=== PATIENT | male | born 1950 | race Caucasian/White ===

== ENCOUNTER 2022-01-25 11:19 | Outpatient (CLI) | payer MEDICARE, BC, SELFPAY ==
[2022-01-25 12:25] LABS: Albumin* 4.1 g/dL (3.3-5.0); Chloride* 105 mmol/L (96-114); Sodium* 138 mmol/L (135-149)
[2022-01-25 12:26] LABS: Potassium* 3.9 mmol/L (3.6-5.1)
[2022-01-25 12:27] LABS: Cholesterol* 143 mg/dL (90-199)
[2022-01-25 12:28] LABS: Alkaline Phosphatase* 76 U/L (40-150); Aspartate Amino Transferase* 30 U/L (12-35); Bilirubin Total* 0.9 mg/dL (0.1-1.5); Blood Urea Nitrogen* 25 mg/dL (7-30); Carbon Dioxide* 26 mmol/L (20-32); Estimated Glomerular Filt Rate 80 ml/min; Glucose* 94 mg/dL (60-115); Total Protein* 6.7 g/dL (6.0-8.3)
[2022-01-25 12:29] LABS: Alanine Aminotransferase* 30 U/L (4-50); HDL Cholesterol* 65 mg/dL (>=40); LDL Cholesterol Calculated 66 mg/dL (<100); Triglycerides* 59 mg/dL (40-149)
[2022-01-26 12:53] LABS: PSA Screen* 1.05 ng/mL (0.10-4.00)
== END 2022-01-25 11:20 | disposition home or self-care (01) ==
PROVIDERS: PCP Family Medicine; Visit Provider Family Medicine
DX: Z00.00 Encounter for general adult medical examination without abnormal findings (principal); E78.5 Hyperlipidemia, unspecified; I10 Essential (primary) hypertension; Z12.5 Encounter for screening for malignant neoplasm of prostate
CPT/HCPCS: 80053; 80061; 84153

== ENCOUNTER 2023-01-25 07:21 | Outpatient (CLI) | payer MEDICARE, BC, SELFPAY | END 2023-01-25 07:22 | disposition home or self-care (01) | LOC: NFLDREF 01-27 10:54 | PROVIDERS: PCP Family Medicine; Referring Provider Family Medicine; Visit Provider Family Medicine | DX: Z00.00 Encounter for general adult medical examination without abnormal findings (principal); E78.5 Hyperlipidemia, unspecified; R39.12 Poor urinary stream; I10 Essential (primary) hypertension; E66.9 Obesity, unspecified; G25.81 Restless legs syndrome; E87.6 Hypokalemia; Z12.5 Encounter for screening for malignant neoplasm of prostate | CPT/HCPCS: 80053; 80061; 84153 ==

== ENCOUNTER 2023-09-30 07:55 | Outpatient (CLI) | payer MEDICARE, BC, SELFPAY ==
--- OUTSIDE RECORDS SUMMARY | 2023-10-03 03:05 | XMS_ITS | Clinical Summary ---
Author Name Unknown Organization [facility] Address [place], [place] [address] Care Team Providers Care Laborer Carpentry Dock Name Role Phone Zeinab Quinones AuD Unavailable [phone] Ritchie Vitale MD Primary Care Provider [phone] Allergies Active Allergy Reactions Criticality Noted Date Comments Homeopathic Products 02/16/2007 nasal congestion Gabapentin Dizziness 11/30/2013 He also had a hard time with articulation Horse/Equine Containing Products *Unknown 10/05/2006 Mold Extracts 02/16/2007 nasal congestion and laryngitis Pollen Extracts 02/16/2007 nasal congestion Medications Medication Sig Dispensed Refills Start Date End Date Status cetirizine (ZYRTEC) 10 mg tablet Take 1 tablet by mouth once daily. 0 11/05/2013 Active lisinopril-hydrochl orothiazide, 20-25 mg, (PRINZIDE, ZESTORETIC) 20-25 mg per tablet Take 1 tablet by mouth once daily. Takes 1/2 tablet daily 0 07/14/2015 Active atorvastatin (LIPITOR) 10 mg tablet 2 02/10/2016 Active ipratropium (ATROVENT NASAL) 42 mcg (0.06 %) nasal sprayIndications:Ac [place] non-recurrent maxillary sinusitis Inhale 2 Sprays into both nostrils 3 times daily. 15 mL 11/28/2017 Active fluticasone (50 mcg per actuation) nasal solution (FLONASE) insert 1 spray into each nostril twice daily 04/19/2021 Active multivitamin capsule Take 1 Capsule by mouth once daily. 0 05/12/2021 Active CPAPIndications:CYNDI (obstructive sleep apnea) CPAP machine for home use at pressure 14.6 cmw, full face mask x1/3month with a full face cushion x1/mo 1 Each 11 2023 Active pregabalin (Lyrica) 75 mg capsuleIndications: Restless legs syndrome (RLS) Take 1 pill (75mg) orally 1 hour before bed and 2 pills (150mg) orally at bedtime 270 Capsule 3 2023 Active pramipexole (Mirapex) 0.5 mg tabletIndications:R estless legs syndrome (RLS) Take one pill an hour before bed and another at bedtime, a third dose can be used if having trouble 270 Tablet 3 2023 Active zw-gt-yw2-dha-epa-f joe-lut-mikayla (Ocuvite Adult 50 Plus) 250 mg (90 mg-160 mg) cap Take by mouth. 07/04/2023 Active temazepam (RESTORIL) 30 mg capsuleIndications: Chronic insomnia Take 1 Capsule (30 mg) by mouth at bedtime if needed for Sleep. 60 Capsule 07/04/2023 Active Active Problems Problem Noted Date Diagnosed Date CYNDI 03/03/2021 AHI-17 03/16/2021 Sensorineural hearing loss, bilateral 05/15/2010 Subjective tinnitus 01/02/2010 Family history of malignant neoplasm of prostate 01/09/2007 Unspecified essential hypertension 10/05/2006 Allergic rhinitis, cause unspecified 10/05/2006 Restless legs syndrome (RLS) 10/05/2006 Resolved Problems Problem Noted Date Diagnosed Date Resolved Date SNHL (sensorineural hearing loss) 01/02/2010 05/15/2010 Encounters Date Type Department Care Team Description 10/02/2023 Travel 07/04/2023 11:30 AM FORENSIC PATHOLOGIST Office Visit [facility] [address] [place], [place] [id number] Rohit Bar MD Sleep Follow-up (cpap) 07/04/2023 Travel from Last 3 Months Immunizations Name Administration Dates Next Due Influenza, High-dose Inactivated 03/12/2014 Influenza, IIV3 (Age >=3 years) 04/14/2006 Pneumococcal Poly,23-Valent (Pneumovax) 03/12/20 14 Tdap 01/09/2012,12/13/2005 Zoster (Zostavax-ZVL, live) 01/14/2012 Family History Medical History Relation Name Comments Cancer-prostate Father Heart Disease Father heart attack 2 004 Other Father Lynne's Lung Other Maternal Grandmother at age 90 developed dementia Hypertension Mother Other Mother Alzheimer Other Paternal Grandmother at age 90 developed dementia Other Sister 2 endometriosis Relation Name Status Comments Daughter Alive Father Alive Maternal Grandmother Mother Alive Paternal Grandmother Sister 1 Alive Sister 2 Son 1 Alive Son 2 Alive Social History Tobacco Use Types Packs/Day Years Used Date Smoking Tobacco: Former Pipe Q uit: 03/27/1988 Smokeless Tobacco: Never Tobacco Cessation:Counseling Given: Yes Alcohol Use Standard Drinks/Week Comments Yes 0 (1 standard drink = 0.6 oz pur e alcohol) 2 glasses wine/week with meals Social Connections Answer Date Recorded Frequency of Communication with Friends and Fami ly Not on file 06/27/2021 Financial Resource Strain Answer Date R ecorded Difficulty of Paying Living Expenses Not on file 06/27/2021 Difficulty of Paying Living Expenses Not on file 06/27/2021 Sex and Gender Information Value Date Recorded Sex Assigned at Not on file Gender Identity Not on file Sexual Orientation Not on file Obstetrics History Last Filed Vital Signs Vital Sign Reading Time Taken Comments Blood Pressure 125/74 07/04/2023 11:30 AM FORENSIC PATHOLOGIST Pulse 96 07/04/2023 11:30 AM FORENSIC PATHOLOGIST Temperature 36.8 ??C (98.3 ??F) 11/28/2017 9:33 AM CD T Respiratory Rate 24 03/16/2010 3:35 PM CDT Oxygen Saturation 96% 07/04/2023 11:30 AM FORENSIC PATHOLOGIST Inhaled Oxygen Concentration - - Weight 86.4 kg (190 lb 6.4 oz) 2023 9:35 A M CDT Height 172.5 cm (5' 7.91) 02/25/2021 9:36 AM CD T Body Mass Index 29.02 02/25/2021 9:36 AM CDT Plan of Treatment Upcoming Encounters Date Type Department Care Team (Late st Contact Info) Description 10/03/2023 8:15 AM CDT Office Visit [facility] [place] [address] [place] [address] Ledy Khan PA [address] [place] [address] Health Maintenance Due Date Last Done Comments Hepatitis C screening for ag e 18-79 1967 Lipids for age 45-75 12/17/2010 12/17/2005 Zoster (shingles) series for age 50+ (2 of 3) 03/10/2012 01/14/2012 Medicare Wellness for age 65+ 2014 Pneumococcal series for age 65+ (2 of 2 - PCV) 03/12/2015 03/12/2014 Colonoscopy through age 75 12/31/2017 01/01/2008 Depression screening for age 12+ 02/22/2018 02/23/20 17 Tetanus booster 01/08/2022 01/09/2012, 12/13/2005 BMI (ht and wt on same day) for age 18+ 02/25/2022 02/25/2021, 02/22/2017, 02/26/2016, Additional history exists Influenza for age 65+ 02/26/2024 03/12/2014, 006 Tdap Completed 01/09/2012, 12/13/2005 COVID-19 vaccine series Completed 03/30/20, 03/15/2022, 11/17/2021, Additional history exists Procedures Procedure Name Priority Date/Time Associated Diagnosis Comments LIPID PANEL Timed 12/17/2005 7:12 AM CDT from Last 3 Months or Most Recently Relevant to Health Maintenance Results * (ABNORMAL) LIPID PANEL (12/17/2005 7:12 AM CDT) CHOLESTEROL,TOTAL 206(H) 110 - 199 mg/dL [facility] TRIGLYCERIDES 105 <150 mg/dL [facility] HDL CHOLESTEROL 47 >40 mg/dL [facility] CHOL/HDL RATIO 4.38 <4.51 [facility] LDL CHOLESTEROL 138(H) <131 mg/dL [facility] PATIENT STATUS Fasting [facility] 12/17/2005 7:12 AM CDT 12/17/2005 7:12 AM CDT Devang Dumont MD CHEMISTRY [facility] [address] [place] [address] from Last 3 Months or Most Recently Relevant to Health Maintenance Care Teams Laborer Carpentry Dock Relationship Specialty Start Date End Date Ritchie Vitale MD PCP - General Family Practice 01/24/14 Zeinab Quinones AuD Audiology 10/26/11
--- OUTSIDE RECORDS SUMMARY | 2023-10-03 03:05 | XMS_ITS | Continuity of Care Document ---
Author Name Unknown Organization [facility] Address [address] [address] [place] [address] Phone Care Team Providers Care Facilities Maintenance Worker Name Role Phone Vicente Goodwin MD Unavailable Unavailable Medications Medication Instructions Dosage Effective Dates (start - stop) Status Comments PSEUDOVENT 250-120MGCPMP 12HR Use as directed - Active Nasonex 50 mcg/Actuation [place] as needed - Active lisinopril 5 mg Tab Take 1 tablet by gio th daily - Active Mirapex 1 mg Tab Take one tablet by mouth daily - Active Procedures Procedure Date Offic/outpt E&m [facility] [facility] 8 Routine Serum Collection [id number] Advance Directives Directive Yes / No Effective Date File Name No Information Encounters Encounter Description Practice Location Reason(s) For Visit Diagnoses Date Provider Providers Copied on Encounter [facility], [address] [address], [place], [place], [id number], [place] tel:[phone] [facility] No Information Buddy Zhang. [address] [place] [address], [id number], [place]. tel:[phone] Offic/outpt [facility] [facility], [address] [address], [place], [place], [id number], [place] tel:[phone] [facility] Abdominal pain (chief complaint)G as (chief complaint) Change In Bowel Habits Buddy Zhang. [address] [place] [address], [id number], [place]. tel:[phone] Referring Provider: Referral Self, USE FOR SELF REFERRALS. Family History Family Member Type Diagnosis Age At Onset First degree family history Problem (finding) No Family history of No history of Colon Polyps First degree family history Problem (finding) prostate cancer First degree family history Problem (finding) No history of Crohn's First degree family history Problem (finding) No history of Ulcerative Colitis First degree family history Problem (finding) No history of Cancer, colon Payers Payer name Insurance type Covered democrat ID Authoriza tion(s) [facility] [id number] Social History Type Description Quantity Date Captured Comments Sex Male Smoking Status No Information Chief Complaint And Reason For Visit No Information Reason For Referral Reason For Referral No Information History Of Present Illness Encounter Date Complaint History Of Prese nt Illness No Information Functional Status Date Functional Assessmen t No Information Instructions Date Instruction Additional Infor mation No Information Assessments Type Assessment Date No Information Patient Care Teams Name Effective Dates (start - stop) Status Members No Information
== END 2023-09-30 07:56 | disposition home or self-care (01) ==
LOC: NFLDREF 10-03 03:04
PROVIDERS: PCP Family Medicine; Referring Provider Family Medicine; Visit Provider Family Medicine
DX: Z01.818 Encounter for other preprocedural examination (principal)
CPT/HCPCS: 80048

== ENCOUNTER 2023-12-22 08:15 | Outpatient (RCR) | payer MEDICARE, BC, SELFPAY | END 2023-12-27 09:46 | disposition home or self-care (01) | PROVIDERS: PCP Family Medicine; Visit Provider Orthopaedic Surgery | DX: Z96.652 Presence of left artificial knee joint (principal); Z51.89 Encounter for other specified aftercare | CPT/HCPCS: 97110; 97112; 97140; 97161; 97530 ==

== ENCOUNTER 2024-01-31 07:35 | Outpatient (CLI) | payer MEDICARE, BC, SELFPAY ==
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
--- OUTSIDE RECORDS SUMMARY | 2024-02-01 11:34 | XMS_ITS | Clinical Summary ---
Author Organization [facility] Address [place], [place] [address] Care Team Providers Care Hide Cleaner Name Role Phone Zeinab Quinones AuD Unavailable [phone] Ritchie Vitale MD Primary Care Provider [phone] Allergies Active Allergy Reactions Criticality Noted Date [...] NASAL) 42 mcg (0.06 %) nasal sprayIndications:Ac [place] non-recurrent maxillary sinusitis Inhale 2 Sprays into [...] having trouble 270 Tablet 3 2023 Active lt-sg-to4-dha-epa-f joe-lut-mikayla (Ocuvite Adult 50 Plus) 250 mg (90 mg-160 mg) cap Take by mouth. 07/04/2023 Active loratadine (CLARITIN) 10 mg liqui-gel capsule Take 10 mg by mouth once daily. 06/27/2019 Active temazepam (RESTORIL) 30 mg capsuleIndications: Chronic insomnia Take 1 Capsule (30 mg) by mouth at bedtime if needed for Sleep. 60 Capsule 12/15/2023 Active temazepam (RESTORIL) 30 mg capsuleIndications: Chronic insomnia Take 1 Capsule (30 mg) by mouth at bedtime if needed for Sleep. 60 Capsule 12/14/2023 Active Active Problems Problem Noted Date Diagnosed [...] Encounters Date Type Department Care Team Description 12/13/2023 Refill [facility] [address] [place] [address] Rohit Bar MD Refill Request (Temazepam 30mg) from Last 3 Months Immunizations Name Administration [...] of Communication with Friends and Fami ly 0 10/03/2023 Alcohol Use Answer Date Recorded How often do you have a drink containing alcohol ? 2 10/03/2023 How many drinks containing a lcohol do you have on a typical day when you are drinking? 0 10/03/2023 How often do you have five or more drinks on one occasion? 0 10/03/2023 Financial Resource Strain Answer Date R ecorded Difficulty of Paying Living Expenses 3 10/03/2023 Difficulty of Paying Living Expenses Not on file 10/03/2023 Food Insecurity Answer Date Recorded Worried About Running Out of Food in the Last Ye ar 1 10/03/2023 Transportation Needs Answer Date Record ed Lack of Transportation (Medical) 1 10/03/2023 Housing Stability Answer Date Recorded Unable to Pay for Housing in the Last Year 1 10/03/2023 Sex and Gender Information Value Date Recorded Sex Assigned at Not on file Gender Identity Not on file Sexual Orientation Not on file Obstetrics History Last Filed Vital Signs Vital Sign Reading Time Taken Comments Blood Pressure 109/72 10/03/2023 8:01 AM CDT Pulse 101 10/03/2023 8:01 AM CDT Temperature 36.9 ??C (98.4 ??F) 10/03/2023 8:01 AM CD T Respiratory Rate 24 03/16/2010 3:35 PM CDT Oxygen Saturation 93% 10/03/2023 8:01 AM CDT Inhaled Oxygen Concentration - - Weight 91.6 kg (202 lb) 10/03/2023 8:01 AM CDT Height 172.5 cm (5' 7.91) 02/25/2021 9:36 AM CD T Body Mass Index 30.79 02/25/2021 9:36 AM CDT Plan of Treatment Upcoming Encounters Date Type Department Care Team (Late st Contact Info) Description 02/21/2024 9:00 AM CDT Office Visit [facility] [address] [place] [address] Rohit Bar MD [address] [place] [address] Health Maintenance Due Date Last Done Comments Hepatitis C screening for ag e 18-79 1967 Lipids for age 45-75 12/17/2010 12/17/2005 Zoster (shingles) series for age 50+ (2 of 3) 03/10/2012 01/14/2012 AAA screening age 65-74 2014 Medicare Wellness for age 65+ 2014 Pneumococcal series for age 65+ (2 of 2 - PCV) 03/12/2015 03/12/2014 Colonoscopy through age 75 12/31/2017 01/01/2008 Depression screening for age 12+ 02/22/2018 02/23/20 17 Tetanus booster 01/08/2022 01/09/2012, 12/13/2005 BMI (ht and wt on same day) for age 18+ 02/25/2022 02/25/2021, 02/22/2017, 02/26/2016, Additional history exists COVID-19 vaccine series ( season) 2023 03/30/2023, 03/15/2022, 11/17/2021, Additional history exists Influenza for age 65+ 02/26/2024 03/12/2014, 006 Tdap Completed 01/09/2012, 12/13/2005 Procedures Procedure Name Priority Date/Time Associated Diagnosis Comments LIPID PANEL Timed 12/17/2005 7:12 AM CDT from Last 3 Months or Most Recently Relevant to Health Maintenance Results * (ABNORMAL) LIPID PANEL (12/17/2005 7:12 AM CDT) CHOLESTEROL,TOTAL 206(H) 110 - 199 mg/dL [facility] TRIGLYCERIDES 105 <150 mg/dL [facility] HDL CHOLESTEROL 47 >40 mg/dL [facility] CHOL/HDL RATIO 4.38 <4.51 [facility] LDL CHOLESTEROL 138(H) <131 mg/dL [facility] PATIENT STATUS Fasting [facility] 12/17/2005 7:12 AM CDT 12/17/2005 7:12 AM CDT Devang Dumont MD CHEMISTRY [facility] [address] [place] [address] from Last 3 Months or Most Recently Relevant to Health Maintenance Care Teams Hide Cleaner Relationship Specialty Start Date End Date Ritchie Vitale MD PCP - General Family Practice 01/24/14 Zeinab Quinones AuD Audiology 10/26/11
== END 2024-01-31 07:36 | disposition home or self-care (01) ==
LOC: NFLDREF 02-01 11:32
PROVIDERS: PCP Family Medicine; Referring Provider Family Medicine; Visit Provider Family Medicine
DX: I10 Essential (primary) hypertension (principal); E78.5 Hyperlipidemia, unspecified; Z12.5 Encounter for screening for malignant neoplasm of prostate; E66.9 Obesity, unspecified
CPT/HCPCS: 80053; 80061; G0103

== ENCOUNTER 2025-02-04 07:50 | Outpatient (CLI) | payer MEDICARE, BC, SELFPAY | END 2025-02-04 07:51 | disposition home or self-care (01) | LOC: NFLDREF 02-07 15:59 | PROVIDERS: PCP Family Medicine; Referring Provider Family Medicine; Visit Provider Family Medicine | DX: R39.9 Unspecified symptoms and signs involving the genitourinary system (principal); E78.5 Hyperlipidemia, unspecified; I10 Essential (primary) hypertension; Z12.5 Encounter for screening for malignant neoplasm of prostate | CPT/HCPCS: 80053; 80061; G0103 ==